=== PATIENT | male | born 1980 ===

== ENCOUNTER 2019-03-24 05:28 | Emergency (ER) | payer SELFPAY ==
[2019-03-24 05:35] VITALS: BP 126/80
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
[2019-03-24] MEDS: fentaNYL 100 MCG/2 ML SDV IVPUSH ONE (07:24)
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
== END 2019-03-24 07:54 | disposition short-term general hospital (02) ==
LOC: VM.ED 05:28
DX: S82.842A Displaced bimalleolar fracture of left lower leg, initial encounter for closed fracture (principal); Z87.891 Personal history of nicotine dependence; V20.4XXA Motorcycle driver injured in collision with pedestrian or animal in traffic accident, initial encounter; Y92.411 Interstate highway as the place of occurrence of the external cause
CPT/HCPCS: 29515; 73610-LT; 96374; 99283-GF; 99285-25; J3010